=== PATIENT | female | born 2000 | race Caucasian/White ===

== ENCOUNTER → 2021-01-08 | Outpatient (CLI) | payer OTHER ==
--- NOTE | 2021-01-08 19:19 | RAD ---
EXAM: Ultrasound US OB >14 WEEKS 01/08/2021 9:49 AM INDICATION: Size dates discrepancy. Gestational age by LMP: 20 weeks 5 days COMPARISON: None FINDINGS: There is a single living intrauterine gestation in cephalic position. heart rate is [address] acenta is posterior. Cervix measures 4.2 cm. No previa. The following anatomy was visualized and unremarkable: Four-chamber heart, brain, cord in sertion, three-vessel cord, stomach, kidneys, bladder, spine, diaphragm, 4 extremities. biometry: Biparietal diameter: 4.84 cm, 20 weeks 4 days Head circumference: 18.01 cm, 20 weeks 3 days Abdominal circumference: 14.43 cm, 19 weeks 5 days Femur length: 3.49 cm, 21 weeks 0 days HC/AC ratio: 1.25 Estimated gestational age by ultrasound: 20 weeks 3 days. Estimated weight: 348 g. Sonographic EDC: 05/25/2021 IMPRESSION: 1. Single living intrauterine with gestational age by ultrasound 20 weeks 3 days. Sonograph ic EDC: 05/25/2021. 2. anatomy as above. Electronically signed by: Tegan Garzon MD (01/08/2021 7:17 PM) [id number]
== END ==
LOC: US 09:58
PROVIDERS: ATTEND Obstetrics & Gynecology
DX: O26.842 Uterine size-date discrepancy, second trimester (principal); Z3A.20 20 weeks gestation of pregnancy
CPT/HCPCS: 76805

== ENCOUNTER → 2021-02-12 | Outpatient (CLI) | payer OTHER ==
[2021-02-12 09:48] LABS: BASO % 0 % (0-3); EOS % 1 % (0-3); HEMATOCRIT 32.8 % (36.0-47.0); HEMOGLOBIN 10.9 g/dL (12.0-15.5); LYMPH # 2.8 x10^3/uL (1.0-4.8); LYMPH % 28 % (24-48); MEAN CORPUSCULAR HEMOGLOBIN 29 pg (25-35); MEAN CORPUSCULAR HGB CONC 33 g/dL (31-37); MEAN CORPUSCULAR VOLUME 86 fL (79-100); MONO # 0.5 x10^3/uL (0.0-1.1); MONO % 5 % (0-9); NEUT # 6.7 x10^3/uL (1.8-7.7); NEUT % 66 % (31-73); PLATELET COUNT 190 x10^3/uL (140-400); RED CELL DISTRIBUTION WIDTH 14.2 % (11.5-14.5); WHITE BLOOD COUNT 10.1 x10^3/uL (4.0-11.0)
== END ==
LOC: LAB 09:15
PROVIDERS: ATTEND Obstetrics & Gynecology
DX: O09.92 Supervision of high risk pregnancy, unspecified, second trimester (principal); Z3A.25 25 weeks gestation of pregnancy
CPT/HCPCS: 36415; 82950; 85025; 86850; 86900; 86901; 96372; J2790